=== PATIENT | male | born 1955 | race Caucasian/White ===

== ENCOUNTER 2017-11-26 10:46 | Inpatient (IN) | payer OTHER ==
--- NOTE | 2017-11-26 11:35 | PDOC ---
Attending Attestation - HPI HPI: 11/26/17 11:41 62M BIBA No recorded pmhx, reports significant EtOH use. (drinks a minimum 3 shots a day) Pt reports SOB, palpitations, irregular heart rate, and lightheadedness on Sunday. Reports tremors began yesterday Pt states he has not consumed EtOh since sunday Pt presents today with tremors and lightheadedness notes prior tremors in past, but not with this long of a duration. Pt used to attend [facility] in [place], but stopped after 01/2017. Plans on attending another clinic. No fever, no falls, no loc, no cp no sob at presentation. No other problems other than tremors Denies hx of delirium withdrawal Fhx: Diabetes <Archana Abad - Last Filed: 11/26/17 13:06> - Resident Resident Name: Jerald Antonio - ED Attending Attestation I have performed the following: I have examined & evaluated the patient, The case was reviewed & discussed with the resident, I agree w/resident's findings & plan, Exceptions are as noted - Physicial Exam PE: 11/28/17 11:44 GENERAL: The patient is in no acute distress, Awake and alert, tremulous. ENT: (+) tongue fasciculations NECK: Normal range of motion LUNGS: Breath sounds equal, clear to auscultation bilaterally. HEART: Tachycardiac, Regular ABDOMEN: Soft, nontender EXTREMITIES: Normal range of motion, no edema. NEUROLOGICAL: Cranial nerves II through XII grossly intact. Normal speech. No focal neurological deficits. - Medical Decision Making 11/26/17 12:58 Laboratory Tests 11/26/17 11/26/17 11:53 11:53 WBC 6.5 Hgb 11.6 L Hct 32.9 L Plt Count 155 Sodium 141 Potassium 3.2 L Chloride 104 Carbon Dioxide 27 BUN 7 Creatinine 0.6 L Random Glucose 102 Total Bilirubin 1.5 H AST 136 H ALT 65 EKG: SR, rate of 93 bpm, axis nml, no st elevations or depressions QTC - 537ms T waves upright Pt given Librium 50mg po, Ativan 2mg IV and then another dose of Ativan 2mg Upon evening rounds, pt tremulous, given Ativan 4mg IV Pt is less tremulous Will admit to Dr Almaraz Clinical Impression: Alcohol withdrawal, initial presentation <Kim Cadena - Last Filed: 11/28/17 11:45> Discharge Disposition <Archana Abad - Last Filed: 11/26/17 13:06> - Discharge Dispostion Decision to Admit order: Yes <Kim Cadena - Last Filed: 11/28/17 11:45> - Diagnosis Alcohol withdrawal Qualifiers: Complication of substance-induced condition: uncomplicated Qualified Code(s): F10.230 - Alcohol dependence with withdrawal, uncomplicated - Discharge Dispostion Condition at time of disposition: Guarded Attestations - Attestations Documentation prepared by Archana Abad, acting as medical service technician for Kim Cadena MD. <Archana Abad - Last Filed: 11/26/17 13:06>
[2017-11-26] MEDS ORDERED: SODIUM CHLORIDE 1,000 ML IV STA (11:36)
[2017-11-26] MEDS ORDERED: chlordiazePOXIDE HCL 25 MG CAPSULE PO ONE (11:38)
[2017-11-26 11:55] VITALS: BMI 23.0
[2017-11-26] MEDS ORDERED: chlordiazePOXIDE HCL 25 MG CAPSULE ONE (11:58)
[2017-11-26] MEDS ORDERED: LORazepam 2 MG/ML SDV VIAL ONE ×4 (11:59→18:52)
--- NOTE | 2017-11-26 12:07 | PDOC ---
History of Present Illness - General Chief Complaint: Alcohol intoxication Stated Complaint: WITHDRAWAL Time Seen by Provider: 11/26/17 10:54 - History of Present Illness Initial Comments: 11/26/17 12:57 62 yo M who states he has no pmh is here after experiencing an irregular heart rate, SOB, and lightheadedness since Sunday. Then on Sunday he started to experience a bilateral hand tremor. the patient states he is a heavy alcohol drinker and has at least 3 to 4 shots a day. His last alcoholic drink was Sunday. He denies any recent fevers, chest pain, falling down. or LOC. Denies N/V/D Past History - Past Medical History Allergies/Adverse Reactions: Allergies Allergy/AdvReac Type Severity Reaction Status Date / Time No Known Allergies Allergy Verified 11/26/17 11:20 Home Medications: Ambulatory Orders NK [No Known Home Medication] 11/26/17 Review of Systems - Review of Systems Comments:: 11/26/17 12:59 CONSTITUTIONAL: Absent: fever, chills, diaphoresis, generalized weakness, malaise, loss of appetite HEENT: Absent: rhinorrhea, nasal congestion, throat pain, throat swelling, difficulty swallowing, mouth swelling, ear pain, eye pain, visual Changes CARDIOVASCULAR: Positive: palpitations, irregular heart rate, lightheadedness Absent: chest pain, syncope,peripheral edema RESPIRATORY: Positive: SOB Absent: cough, dyspnea with exertion, orthopnea, wheezing, stridor, hemoptysis GASTROINTESTINAL: Absent: abdominal pain, abdominal distension, nausea, vomiting, diarrhea, constipation, melena, hematochezia GENITOURINARY: Absent: dysuria, frequency, urgency, hesitancy, hematuria, flank pain, genital pain MUSCULOSKELETAL: Absent: myalgia, arthralgia, joint swelling SKIN: Positive: Abrasions on both arms from a fall 3 weeks back Absent: rash, itching, pallor HEMATOLOGIC/IMMUNOLOGIC: Absent: easy bleeding, easy bruising, lymphadenopathy, frequent infections ENDOCRINE: Absent: unexplained weight gain, unexplained weight loss, heat intolerance, cold intolerance NEUROLOGIC: Absent: headache, focal weakness or paresthesias, dizziness, unsteady gait, seizure, mental status changes, bladder or bowel incontinence PSYCHIATRIC: Absent: anxiety, depression, suicidal or homicidal ideation, hallucinations. *Physical Exam - Physical Exam Comments: 11/26/17 13:01 GENERAL: Patient is uncomfortable because both hands are experiencing a tremor. Well developed, well nourished. Awake and alert. HEENT: Tongue is constantly fasciculating. Normocephalic, atraumatic. PERRLA, EOMI. No conjunctival pallor. Sclera are non- icteric. Moist mucous membranes. Oropharynx is clear. NECK: Supple. Full ROM. No JVD. Carotid pulses 2+ and symmetric, without bruits. No thyromegaly. No lymphadenopathy. CARDIOVASCULAR: Patient is tachycardic, regular rhythm. No murmurs, rubs, or gallops. Distal pulses are 2+ and symmetric. PULMONARY: No evidence of respiratory distress. Lungs clear to auscultation bilaterally. No wheezing, rales or rhonchi. ABDOMINAL: Soft. Non-tender. Non-distended. No rebound or guarding. No organomegaly. Normoactive bowel sounds. MUSCULOSKELETAL Normal range of motion at all joints. No bony deformities or tenderness. No CVA tenderness. EXTREMITIES: No cyanosis. No clubbing. No edema. No calf tenderness. SKIN: bilaterall abrasions on arm from 3 weeks ago. Warm and dry. Normal capillary refill. No rashes. No jaundice. NEUROLOGICAL: Alert, awake, appropriate. Cranial nerves 2-12 intact. No deficits to light touch Normal speech. PSYCHIATRIC: Cooperative. Good eye contact. Appropriate mood and affect. ED Treatment Course - LABORATORY CBC & Chemistry Diagram: 11/26/17 11:53 11/26/17 11:53 Medical Decision Making - Medical Decision Making 11/26/17 13:03 62 yo M here with tachycardia, HTN, bilateral arm tremor, tongue fasciculations , here with what is likely alcohol withdrawal. He endorses heavy drinking on a daily basis. last drink was Sunday. Plan: Librium, ativan, cbc, cmp, utox, alcohol level, ekg, re-assess. Arrange plan for alcohol detox. Plan is to admit patient for alcohol withdrawal. 11/26/17 13:34 *DC/Admit/Observation/Transfer Diagnosis at time of Disposition: Alcohol withdrawal Qualifiers: Complication of substance-induced condition: uncomplicated Qualified Code(s): F10.230 - Alcohol dependence with withdrawal, uncomplicated - Discharge Dispostion Condition at time of disposition: Guarded Decision to Admit order: Yes - Referrals - Patient Instructions - Post Discharge Activity
[2017-11-26 12:13] LABS: BASO % 1.2 % (0-2.0); EOS % 0.2 % (0-4.5); HEMATOCRIT 32.9 % (35.4-49); HEMOGLOBIN 11.6 GM/dL (11.7-16.9); LYMPH % 10.8 % (8-40); MCH 37.7 pg (25.7-33.7); MCHC 35.4 g/dl (32.0-35.9); MEAN CELL VOLUME 106.6 fl (80-96); MEAN PLT VOLUME 8.2 fl (7.5-11.1); MONO % 9.5 % (3.8-10.2); NEUT % 78.3 % (42.8-82.8); PLATELET COUNT 155 K/MM3 (134-434); RBC 3.08 M/mm3 (4.00-5.60); RDW 15.9 % (11.9-15.9); WHITE BLOOD COUNT 6.5 K/mm3 (4.0-10.0)
[2017-11-26 12:38] LABS: ALBUMIN 2.9 g/dl (3.4-5.0); AMYLASE 19 U/L (25-115); ANION GAP 10 (8-16); BILIRUBIN,TOTAL 1.5 mg/dL (0.2-1.0); BLOOD UREA NITROGEN 7 mg/dL (7-18); CALCIUM 8.1 mg/dL (8.5-10.1); CHLORIDE 104 mmol/L (98-107); CO2 27 mmol/L (21-32); CREATININE 0.6 mg/dL (0.7-1.3); GLUCOSE,RANDOM 102 mg/dL (74-106); LIPASE 111 U/L (73-393); SGPT/ALT 65 U/L (12-78); SODIUM 141 mmol/L (136-145); TOT PROT 6.2 g/dl (6.4-8.2)
[2017-11-26 12:39] LABS: ALK PHOS 230 U/L (45-117)
[2017-11-26 12:44] LABS: POTASSIUM 3.2 mmol/L (3.5-5.1); SGOT/AST 136 U/L (15-37)
[2017-11-26] MEDS ORDERED: FOLIC ACID INJECTION - 1 MG, THIAMINE HCL 100 MG, MULTIVIT INJECTION ADULT 10 ML in SOD... IVPB ONE (13:26)
--- NOTE | 2017-11-26 13:37 | EKG ---
Test Reason : Blood Pressure : / mmHG Vent. Rate : 093 BPM Atrial Rate : 093 BPM P-R Int : 132 ms QRS Dur : 090 ms QT Int : 432 ms P-R-T Axes : 058 061 045 degrees QTc Int : 537 ms SINUS RHYTHM WITH WITH PREMATURE VENTRICULAR OR ABERRANTLY CONDUCTED COMPLEXES PROLONGED QT ABNORMAL ECG NO PREVIOUS ECGS AVAILABLE Confirmed by MARCY LANCE MD ([id number]) on 11/26/2017 1:37:20 PM Referred By: Confirmed By:MARCY LANCE MD
[2017-11-26 14:21] LABS: ANISOCYTOSIS 1+; MACROCYTOSIS 1+; PLATELET ESTIMATE NORMAL
--- NOTE | 2017-11-26 20:20 | HP ---
Admitting History and Physical - Primary Care Physician PCP: Jim Almaraz - Admission Chief Complaint: tremors, sob, palpitations History of Present Illness: 62 yo M who states he has no pmh is here after experiencing an irregular heart rate, SOB, and lightheadedness since Sunday. Then on Sunday he started to experience a bilateral hand tremor. the patient states he is a heavy alcohol drinker and has at least 3 to 4 shots a day. His last alcoholic drink was Sunday. He denies any recent fevers, chest pain. - Smoking History Smoking history: Unknown if ever smoked Have you smoked in the past 12 months: No - Alcohol/Substance Use Hx Alcohol Use: Yes ("3 SHOTS OF VODKA") Home Medications - Allergies Allergies/Adverse Reactions: Allergies Allergy/AdvReac Type Severity Reaction Status Date / Time No Known Allergies Allergy Verified 11/26/17 11:20 - Home Medications Home Medications: Ambulatory Orders NK [No Known Home Medication] 11/26/17 Physical Examination Vital Signs: Vital Signs Temperature 98.2 F 11/26/17 11:42 Pulse Rate 99 H 11/26/17 11:42 Respiratory Rate 16 11/26/17 11:42 Blood Pressure 161/108 11/26/17 11:42 O2 Sat by Pulse Oximetry (%) 100 11/26/17 11:42 Constitutional: Yes: Anxious HENT: Yes: Atraumatic Neck: Yes: Supple Cardiovascular: Yes: Tachycardia Respiratory: Yes: CTA Bilaterally Gastrointestinal: Yes: Normal Bowel Sounds Extremities: Yes: WNL Neurological: Yes: Alert, Oriented Labs: CBC, BMP 11/26/17 11:53 11/26/17 11:53 Imaging - Results X-ray: Report Reviewed Problem List - Problems (1) Alcohol withdrawal Assessment/Plan: will put him on librium get detox consult prn ativan mvi Code(s): F10.239 - ALCOHOL DEPENDENCE WITH WITHDRAWAL, UNSPECIFIED Qualifiers: Complication of substance-induced condition: uncomplicated Qualified Code(s ): F10.230 - Alcohol dependence with withdrawal, uncomplicated Assessment/Plan Laboratory Tests 11/26/17 11/26/17 11:53 11:53 WBC 6.5 RBC 3.08 L Hgb 11.6 L Hct 32.9 L MCV 106.6 H MCH 37.7 H MCHC 35.4 RDW 15.9 Plt Count 155 MPV 8.2 Absolute Neuts (auto) 5.1 Neutrophils % 78.3 Lymphocytes % 10.8 Monocytes % 9.5 Eosinophils % 0.2 Basophils % 1.2 Nucleated RBC % 0 Hypochromia 0 Platelet Estimate Normal Polychromasia 0 Poikilocytosis 0 Anisocytosis 1+ Microcytosis 0 Macrocytosis 1+ Sodium 141 Potassium 3.2 L Chloride 104 Carbon Dioxide 27 Anion Gap 10 BUN 7 Creatinine 0.6 L Creat Clearance w eGFR > 60 Random Glucose 102 Calcium 8.1 L Total Bilirubin 1.5 H AST 136 H ALT 65 Alkaline Phosphatase 230 H Total Protein 6.2 L Albumin 2.9 L Total Amylase 19 L Lipase 111 Active Medications Generic Name Dose Route Start Last Admin Trade Name Freq PRN Reason Stop Dose Admin Folic Acid 1 mg/ Thiamine HCl 1,000 mls @ 125 mls/hr 11/26/17 13:26 11/26/17 14:38 100 mg/ Multivitamins/Minerals IVPB 11/26/17 21:25 125 mls/hr 10 ml/ Sodium Chloride ONCE ONE Administration Active Medications Generic Name Dose Route Start Last Admin Trade Name Freq PRN Reason Stop Dose Admin Chlordiazepoxide HCl 50 mg 11/27/17 05:30 11/27/17 13:10 Librium - PO 11/27/17 23:01 Not Given [id number] AYDE Chlordiazepoxide HCl 25 mg 11/28/17 05:00 Librium - PO 11/28/17 23:01 [id number] AYDE Chlordiazepoxide HCl 15 mg 11/29/17 05:00 Librium - PO 11/29/17 23:01 [id number] AYDE Chlordiazepoxide HCl 50 mg 11/27/17 05:08 Librium - PO 11/30/17 05:07 Q4H PRN WITHDRAWAL(CONT SUBST) Chlordiazepoxide HCl 10 mg 11/30/17 05:00 Librium - PO 11/30/17 23:01 [id number] AYDE Potassium Chloride 40 meq 11/26/17 20:45 11/27/17 11:05 K-Dur - PO 40 meq DAILY AYDE Administration Thiamine HCl 100 mg 11/27/17 10:00 11/27/17 11:05 Vitamin B1 - PO 100 mg DAILY AYDE Administration
[2017-11-26] MEDS ORDERED: POTASSIUM CHLORIDE TABS 20 MEQ TABLET.ER (FP) PO ONE (21:22)
[2017-11-26] MEDS: POTASSIUM CHLORIDE TABS 20 MEQ TABLET.ER (FP) PO SCH (21:51)
[2017-11-27] MEDS ORDERED: LORazepam 2 MG/ML SDV VIAL ONE (01:13)
[2017-11-27 06:39] LABS: EOS % 0.9 % (0-4.5); HEMATOCRIT 30.5 % (35.4-49); HEMOGLOBIN 10.8 GM/dL (11.7-16.9); LYMPH % 12.6 % (8-40); MCH 38.4 pg (25.7-33.7); MCHC 35.5 g/dl (32.0-35.9); MEAN CELL VOLUME 108.1 fl (80-96); MEAN PLT VOLUME 8.2 fl (7.5-11.1); MONO % 8.2 % (3.8-10.2); NEUT % 77.3 % (42.8-82.8); PLATELET COUNT 128 K/MM3 (134-434); RBC 2.82 M/mm3 (4.00-5.60); RDW 15.6 % (11.9-15.9); WHITE BLOOD COUNT 7.3 K/mm3 (4.0-10.0)
[2017-11-27] MEDS: chlordiazePOXIDE HCL 25 MG CAPSULE PO SCH ×4 (06:40→22:23)
[2017-11-27 07:03] LABS: ALBUMIN 2.6 g/dl (3.4-5.0); ANION GAP 11 (8-16); BLOOD UREA NITROGEN 7 mg/dL (7-18); CALCIUM 7.8 mg/dL (8.5-10.1); CHLORIDE 109 mmol/L (98-107); CO2 24 mmol/L (21-32); GLUCOSE,RANDOM 66 mg/dL (74-106); SODIUM 144 mmol/L (136-145)
[2017-11-27 07:06] LABS: ALK PHOS 185 U/L (45-117); BILIRUBIN,TOTAL 1.2 mg/dL (0.2-1.0); CREATININE 0.4 mg/dL (0.7-1.3); SGOT/AST 98 U/L (15-37); SGPT/ALT 52 U/L (12-78); TOT PROT 5.2 g/dl (6.4-8.2)
[2017-11-27 07:27] LABS: POTASSIUM 2.7 mmol/L (3.5-5.1)
[2017-11-27 09:02] LABS: URINE APPEARANCE CLEAR; URINE BILIRUBIN NEGATIVE (<2.0 mg/dL); URINE COLOR YELLOW; URINE GLUCOSE (UA) NEGATIVE (NEGATIVE); URINE KETONE TRACE (NEGATIVE); URINE LEUK ESTERASE NEGATIVE (NEGATIVE); URINE NITRITE NEGATIVE (NEGATIVE); URINE PROTEIN NEGATIVE (NEGATIVE); URINE UROBILINOGEN 4.0 E.U/dl mg/dL (0.2-1.0)
[2017-11-27 09:16] LABS: COCAINE, UR NEGATIVE ng/ml (CUTOFF=300); METHADONE, UR NEGATIVE ng/ml (CUTOFF=300); OPIATES, URI NEGATIVE ng/ml (CUTOFF=300); URINE AMPHETAMINES NEGATIVE ng/ml (CUTOFF=500); URINE BARBITURATES NEGATIVE ng/ml (CUTOFF=200)
[2017-11-27 09:22] LABS: PHENCYCLIDINE,URINE NEGATIVE ng/ml (CUTOFF=25)
[2017-11-27 09:38] LABS: URINE BENZODIAZEPINES POSITIVE ng/ml (CUTOFF=200)
[2017-11-27] MEDS: THIAMINE HCL 100 MG TABLET (FP) PO SCH (11:05)
[2017-11-27] MEDS: KCL 10 MEQ IVPB 10 MEQ/100 ML INFUS.BAG IVPB SCH ×2 (11:05→13:09)
[2017-11-27] MEDS: POTASSIUM CHLORIDE TABS 20 MEQ TABLET.ER (FP) PO SCH (11:05)
--- NOTE | 2017-11-27 15:32 | PN ---
Progress Note, Physician - Current Medication List Current Medications: Active Medications Chlordiazepoxide HCl (Librium -) 25 mg PO [id number] AYDE Stop: 11/28/17 23:01 Last Admin: 11/28/17 10:00 Dose: 25 mg Chlordiazepoxide HCl (Librium -) 15 mg PO [id number] AYDE Stop: 11/29/17 23:01 Chlordiazepoxide HCl (Librium -) 50 mg PO Q4H PRN PRN Reason: WITHDRAWAL(CONT SUBST) Stop: 11/30/17 05:07 Chlordiazepoxide HCl (Librium -) 10 mg PO [id number] AYDE Stop: 11/30/17 23:01 Nicotine (Nicoderm Patch -) 21 mg TD DAILY AYDE Last Admin: 11/28/17 10:24 Dose: 21 mg Potassium Chloride (K-Dur -) 40 meq PO DAILY AYDE Last Admin: 11/28/17 09:21 Dose: 40 meq Thiamine HCl (Vitamin B1 -) 100 mg PO DAILY AYDE Last Admin: 11/28/17 09:21 Dose: 100 mg - Objective Vital Signs: Vital Signs Temperature 98.1 F 11/28/17 05:28 Pulse Rate 84 11/28/17 05:28 Respiratory Rate 18 11/28/17 05:28 Blood Pressure 126/79 11/28/17 05:28 O2 Sat by Pulse Oximetry (%) 96 11/27/17 21:00 Labs: CBC, BMP 11/27/17 06:00 11/28/17 10:15 <Pantera Harmon - Last Filed: 11/28/17 11:22> History of Present Illness: has tremors - Current Medication List Current Medications: Active Medications Chlordiazepoxide HCl (Librium -) 50 mg PO [id number] AYDE Stop: 11/27/17 23:01 Last Admin: 11/27/17 13:10 Dose: Not Given Chlordiazepoxide HCl (Librium -) 25 mg PO [id number] AYDE Stop: 11/28/17 23:01 Chlordiazepoxide HCl (Librium -) 15 mg PO [id number] AYDE Stop: 11/29/17 23:01 Chlordiazepoxide HCl (Librium -) 50 mg PO Q4H PRN PRN Reason: WITHDRAWAL(CONT SUBST) Stop: 11/30/17 05:07 Chlordiazepoxide HCl (Librium -) 10 mg PO [id number] [facility] Stop: 11/30/17 23:01 Potassium Chloride (K-Dur -) 40 meq PO DAILY [facility] Last Admin: 11/27/17 11:05 Dose: 40 meq Thiamine HCl (Vitamin B1 -) 100 mg PO DAILY [facility] Last Admin: 11/27/17 11:05 Dose: 100 mg - Objective Vital Signs: Vital Signs Temperature 98.4 F 11/27/17 10:00 Pulse Rate 89 11/27/17 10:00 Respiratory Rate 20 11/27/17 10:00 Blood Pressure 150/98 11/27/17 10:00 O2 Sat by Pulse Oximetry (%) 95 11/27/17 10:00 Constitutional: Yes: No Distress HENT: Yes: Atraumatic Neck: Yes: Supple Cardiovascular: Yes: Regular Rate and Rhythm Respiratory: Yes: CTA Bilaterally Gastrointestinal: Yes: Normal Bowel Sounds Extremities: Yes: WNL Edema: No Peripheral Pulses WNL: Yes Neurological: Yes: Alert, Oriented Labs: CBC, BMP 11/27/17 06:00 11/27/17 06:00 <Jim Almaraz - Last Filed: 11/28/17 17:21> Problem List - Problems (1) Alcohol withdrawal Assessment/Plan: will put him on librium get detox consult prn ativan mvi Code(s): F10.239 - ALCOHOL DEPENDENCE WITH WITHDRAWAL, UNSPECIFIED Qualifiers: Complication of substance-induced condition: uncomplicated Qualified Code(s ): F10.230 - Alcohol dependence with withdrawal, uncomplicated <Jim Almaraz - Last Filed: 11/28/17 17:21>
--- NOTE | 2017-11-27 16:06 | CONSULT ---
Consult Detox [facility] Reason for Current Admission/Consult: alcohol use - History History of Present Illness: 62 yo old male lives with his mother. Says he drinks 3-4 shots a day, and his mother said that he drinks about 6 beers a day. 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 Pt denies h/o seizures, DT's. Says he has chronic gross tremors for several years and never had a diagnosis. Pt came to hospital for c/o heart palpitations - History Source History Provided By: Patient, Family Member Limitations to Obtaining History: Poor Historian - Alcohol/Substance Use Hx Alcohol Use: Yes ("3 SHOTS OF VODKA", drinks 6 beers/day per mom) Hx Substance Use: No Hx Substance Use Treatment: No CIWA Score - CIWA Score Nausea/Vomitin-No Nausea/No Vomiting Muscle Tremors: 7-Severe,w/o Arm Extended Anxiety: 2 Agitation: 1-Slight > Activity Paroxysmal Sweats: 1-Minimal Palms Moist Orientation: 0-Oriented Tacttile Disturbances: 0-None Auditory Disturbances: 7Continuous Hallucination Visual Disturbances: 0-None Headache: 0-None Present CIWA-Ar Total Score: 18 Assessment Plan - Diagnosis (1) Alcohol withdrawal Status: Acute Qualifiers: Complication of substance-induced condition: uncomplicated Qualified Code(s ): F10.230 - Alcohol dependence with withdrawal, uncomplicated - Plan Plan: pt was started on alcohol rehab protocol, Vit B12 and thiamine. Prn librium. Will give dose of librium now- pt with anxiety Offered pt rehab services at [facility]- pt states he will go home- lives with mother. - Medication Detox Regimen/Protocol: Librium
[2017-11-28] MEDS: chlordiazePOXIDE HCL 25 MG CAPSULE PO SCH ×4 (05:58→22:37)
[2017-11-28] MEDS: THIAMINE HCL 100 MG TABLET (FP) PO SCH (09:21)
[2017-11-28] MEDS: POTASSIUM CHLORIDE TABS 20 MEQ TABLET.ER (FP) PO SCH (09:21)
[2017-11-28] MEDS: NICOTINE 21 MG/24 HOURS TOPICAL PATCH TD SCH (10:24)
[2017-11-28 10:59] LABS: ALBUMIN 2.7 g/dl (3.4-5.0); ANION GAP 15 (8-16); BLOOD UREA NITROGEN 11 mg/dL (7-18); CALCIUM 8.2 mg/dL (8.5-10.1); CHLORIDE 104 mmol/L (98-107); CO2 21 mmol/L (21-32); CREATININE 0.7 mg/dL (0.7-1.3); GLUCOSE,RANDOM 167 mg/dL (74-106); SGOT/AST 82 U/L (15-37); SGPT/ALT 52 U/L (12-78); SODIUM 140 mmol/L (136-145)
[2017-11-28 11:01] LABS: ALK PHOS 186 U/L (45-117); BILIRUBIN,TOTAL 1.7 mg/dL (0.2-1.0); TOT PROT 5.7 g/dl (6.4-8.2)
--- NOTE | 2017-11-28 11:13 | CON.CARD ---
Consult Consult Specialty:: Cardiology Referred by:: Jim Almaraz MD Reason for Consultation:: Rapid afib - History of Present Illness Chief Complaint: Palpitations, dyspnea History of Present Illness: 62 yo M h/o significant EtOH use (drinks a minimum 3-4 shots a day and 6 beers a day for about 15 years) presented for irregular palpitations, SOB, and lightheadedness since Sunday. Then on Sunday he started to experience bilateral hand tremors. His last alcoholic drink was Sunday, tremulousness improved with librium, he denies any chest pain, near or true syncope, orthopnea , PND or LE edema. - History Source History Provided By: Patient Limitations to Obtaining History: No Limitations - Alcohol/Substance Use Hx Alcohol Use: Yes ("3 SHOTS OF VODKA", drinks 6 beers/day per mom) - Smoking History Smoking history: Unknown if ever smoked Have you smoked in the past 12 months: No Aproximately how many cigarettes per day: 10 Home Medications - Allergies Allergies/Adverse Reactions: Allergies Allergy/AdvReac Type Severity Reaction Status Date / Time No Known Allergies Allergy Verified 11/26/17 11:20 - Home Medications Home Medications: Ambulatory Orders NK [No Known Home Medication] 11/26/17 Review of Systems - Review of Systems Cardiovascular: reports: Palpitations, Shortness of Breath Neurological: reports: Dizziness, Tremors Vital Signs: Vital Signs Temperature 98.1 F 11/28/17 05:28 Pulse Rate 84 11/28/17 05:28 Respiratory Rate 18 11/28/17 05:28 Blood Pressure 126/79 11/28/17 05:28 O2 Sat by Pulse Oximetry (%) 96 11/27/17 21:00 Constitutional: Yes: No Distress, Calm, Cachectic, Thin Neck: Yes: Supple Respiratory: Yes: Regular, Diminished Gastrointestinal: Yes: Normal Bowel Sounds, Soft Cardiovascular: Yes: Regular Rate and Rhythm JVD: No Carotid Bruit: No Heart Sounds: Yes: S1, S2 Edema: No - Other Data Labs, Other Data: CBC, BMP 11/27/17 06:00 11/28/17 10:15 Tele: PAF->SR NSR @ 93 PVC, prolonged QTc Imaging - Results Chest X-ray: Report Reviewed (NAD) Cat Scan: Report Reviewed (HCT: No acute changes) Problem List - Problems (1) Paroxysmal atrial fibrillation with rapid ventricular response Code(s): I48.0 - PAROXYSMAL ATRIAL FIBRILLATION (2) Hypokalemia Code(s): E87.6 - HYPOKALEMIA (3) Anemia, macrocytic, nutritional Code(s): D52.0 - DIETARY FOLATE DEFICIENCY ANEMIA (4) Alcohol withdrawal Code(s): F10.239 - ALCOHOL DEPENDENCE WITH WITHDRAWAL, UNSPECIFIED Qualifiers: Complication of substance-induced condition: uncomplicated Qualified Code(s ): F10.230 - Alcohol dependence with withdrawal, uncomplicated Assessment/Plan 1. Palpitations, dyspnea, near syncope referable to rapid paroxysmal afib->SR [id number] 2. ETOH dependence with uncomplicated withdrawal 3. Macrocytic anemia 4. Hypokalemia P:1. Check TSH, echo to assess ventricular and atrial size and fxn 2. Start Lopressor 25 bid, not ideal anticoagulation candidate due to low risk score and ETOH dependence 3. Librium taper, replete K, vitamin B12 and thiamine repletion 4. Thank you for consultative opportunity
[2017-11-28 11:43] LABS: POTASSIUM 2.8 mmol/L (3.5-5.1)
[2017-11-28] MEDS ORDERED: POTASSIUM CHLORIDE TABS 20 MEQ TABLET.ER (FP) PO ONE ×2 (11:44→14:00)
[2017-11-28] MEDS: METOPROLOL TARTRATE 25 MG TABLET (FP) PO SCH ×2 (12:05→22:37)
--- NOTE | 2017-11-28 16:28 | ECHO ---
Name: GILL CLEMENTS Exam:Adult Echocardiogram Study Date: 11/28/2017 01:28 PM Age: 62 yrs Reason For Study: PAROXYSMAL ATRIAL FIBRILLATION SR Height: 71 in Weight: 165 lb BSA: 1.9 m2 MMode/2D Measurements & Calculations IVSd: 0.87 cm Ao root diam: 2.8 cm LVIDd: 4.9 cm LVIDs: 3.5 cm LVPWd: 1.0 cm EDV(Teich): 114.2 ml ESV(Teich): 51.8 ml Doppler Measurements & Calculations MV E max yann: 40.0 cm/sec MV A max yann: 73.1 cm/sec MV E/A: 0.55 Left Ventricle The left ventricle is normal in size. The left ventricular ejection fraction is normal. The transmitr al spectral Doppler flow pattern is suggestive of impaired LV relaxation. Right Ventricle The right ventricular systolic function is normal. Atria The left atrium is not well visualized, but appears grossly normal in size. Tricuspid Valve There is trace tricuspid regurgitation. Aortic Valve The aortic valve is trileaflet. The aortic valve is normal in structure and function. Great Vessels The aortic root is normal size. Pericardium/Pleura There is no pericardial effusion. Interpretation Summary The transmitral spectral Doppler flow pattern is suggestive of impaired LV relaxation. The left ventricle is normal in size. The left ventricular ejection fraction is normal. The left atrium is not well visualized, but appears grossly normal in size. There is trace tricuspid regurgitation. The aortic valve is trileaflet. The aortic root is normal size. There is no pericardial effusion. Jaswinder Umana MD 11/28/2017 04:27 PM
--- NOTE | 2017-11-28 17:22 | PN ---
Progress Note, Physician History of Present Illness: has tremors - Current Medication List Current Medications: Active Medications Chlordiazepoxide HCl (Librium -) 25 mg PO [id number] [facility] Stop: 11/28/17 23:01 Last Admin: 11/28/17 16:55 Dose: 25 mg Chlordiazepoxide HCl (Librium -) 15 mg PO [id number] AYDE Stop: 11/29/17 23:01 Chlordiazepoxide HCl (Librium -) 50 mg PO Q4H PRN PRN Reason: WITHDRAWAL(CONT SUBST) Stop: 11/30/17 05:07 Chlordiazepoxide HCl (Librium -) 10 mg PO [id number] [facility] Stop: 11/30/17 23:01 Potassium Chloride (Potassium Chloride 10 Meq Premix Ivpb -) 10 meq in 100 mls @ 100 mls/hr IVPB Q60M [facility] Stop: 11/28/17 19:29 Metoprolol Tartrate (Lopressor -) 25 mg PO BID [facility] Last Admin: 11/28/17 12:05 Dose: 25 mg Nicotine (Nicoderm Patch -) 21 mg TD DAILY [facility] Last Admin: 11/28/17 10:24 Dose: 21 mg Potassium Chloride (K-Dur -) 40 meq PO DAILY [facility] Last Admin: 11/28/17 09:21 Dose: 40 meq Thiamine HCl (Vitamin B1 -) 100 mg PO DAILY [facility] Last Admin: 11/28/17 09:21 Dose: 100 mg - Objective Vital Signs: Vital Signs Temperature 98.2 F 11/28/17 14:20 Pulse Rate 88 11/28/17 14:20 Respiratory Rate 18 11/28/17 14:20 Blood Pressure 118/74 11/28/17 14:20 O2 Sat by Pulse Oximetry (%) 92 L 11/28/17 09:00 HENT: Yes: Atraumatic Neck: Yes: Supple Cardiovascular: Yes: Regular Rate and Rhythm Respiratory: Yes: CTA Bilaterally Gastrointestinal: Yes: Normal Bowel Sounds Extremities: Yes: WNL Neurological: Yes: Alert, Oriented Labs: CBC, BMP 11/27/17 06:00 11/28/17 10:15 Problem List - Problems (1) Alcohol withdrawal Assessment/Plan: on libriumdetox consult prn ativan mvi Code(s): F10.239 - ALCOHOL DEPENDENCE WITH WITHDRAWAL, UNSPECIFIED Qualifiers: Complication of substance-induced condition: uncomplicated Qualified Code(s ): F10.230 - Alcohol dependence with withdrawal, uncomplicated
[2017-11-28] MEDS ORDERED: POTASSIUM CHLORIDE 10 MEQ in SODIUM CHLORIDE 100 ML IVPB SCH (17:30)
[2017-11-28] MEDS: KCL 10 MEQ IVPB 10 MEQ/100 ML INFUS.BAG IVPB SCH (17:51)
[2017-11-29] MEDS: chlordiazePOXIDE HCL 25 MG CAPSULE PO PRN ×2 (01:05→21:29)
[2017-11-29] MEDS: chlordiazePOXIDE 5 MG CAPSULE PO SCH ×4 (05:57→23:49)
[2017-11-29] MEDS: NICOTINE 21 MG/24 HOURS TOPICAL PATCH TD SCH (09:30)
[2017-11-29] MEDS: POTASSIUM CHLORIDE TABS 20 MEQ TABLET.ER (FP) PO SCH (09:30)
[2017-11-29] MEDS: METOPROLOL TARTRATE 25 MG TABLET (FP) PO SCH (09:31)
[2017-11-29] MEDS: THIAMINE HCL 100 MG TABLET (FP) PO SCH (09:31)
--- NOTE | 2017-11-29 09:35 | PN ---
Progress Note, Physician History of Present Illness: Palpitations, SOB, and lightheadedness have resolved, no further PAF. Still with tremulousness. - Current Medication List Current Medications: Active Medications Chlordiazepoxide HCl (Librium -) 15 mg PO [id number] [facility] Stop: 11/29/17 23:01 Last Admin: 11/29/17 05:57 Dose: 15 mg Chlordiazepoxide HCl (Librium -) 50 mg PO Q4H PRN PRN Reason: WITHDRAWAL(CONT SUBST) Stop: 11/30/17 05:07 Last Admin: 11/29/17 01:05 Dose: 50 mg Chlordiazepoxide HCl (Librium -) 10 mg PO [id number] [facility] Stop: 11/30/17 23:01 Metoprolol Tartrate (Lopressor -) 25 mg PO BID [facility] Last Admin: 11/29/17 09:31 Dose: 25 mg Nicotine (Nicoderm Patch -) 21 mg TD DAILY [facility] Last Admin: 11/29/17 09:30 Dose: 21 mg Potassium Chloride (K-Dur -) 40 meq PO DAILY [facility] Last Admin: 11/29/17 09:30 Dose: 40 meq Thiamine HCl (Vitamin B1 -) 100 mg PO DAILY [facility] Last Admin: 11/29/17 09:31 Dose: 100 mg - Objective Vital Signs: Vital Signs Temperature 98.3 F 11/29/17 08:54 Pulse Rate 80 11/29/17 08:54 Respiratory Rate 18 11/29/17 08:54 Blood Pressure 126/87 11/29/17 08:54 O2 Sat by Pulse Oximetry (%) 95 11/29/17 08:54 Constitutional: Yes: No Distress, Calm, Cachectic, Thin Neck: Yes: Supple Cardiovascular: Yes: Regular Rate and Rhythm Respiratory: Yes: Regular, Diminished Gastrointestinal: Yes: Normal Bowel Sounds, Soft Edema: No Neurological: Yes: Tremors Labs: CBC, BMP 11/27/17 06:00 11/28/17 10:15 - ....Imaging EKG: Report Reviewed (Tele: SR with PAC, no further PAF) Problem List - Problems (1) Paroxysmal atrial fibrillation with rapid ventricular response Code(s): I48.0 - PAROXYSMAL ATRIAL FIBRILLATION (2) Hypokalemia Code(s): E87.6 - HYPOKALEMIA (3) Anemia, macrocytic, nutritional Code(s): D52.0 - DIETARY FOLATE DEFICIENCY ANEMIA (4) Alcohol withdrawal Code(s): F10.239 - ALCOHOL DEPENDENCE WITH WITHDRAWAL, UNSPECIFIED Qualifiers: Complication of substance-induced condition: uncomplicated Qualified Code(s ): F10.230 - Alcohol dependence with withdrawal, uncomplicated Assessment/Plan 11/28/2017 Echo: Normal LV and RV size and fxn, abnl LV compliance w/o sig valve abnl, normal LA size 1. Palpitations, dyspnea, near syncope referable to rapid paroxysmal afib->SR [id number] 2. ETOH dependence with uncomplicated withdrawal 3. Macrocytic anemia 4. Hypokalemia P: 1. Change Toprol XL 25 qd, not ideal anticoagulation candidate due to low risk score and ETOH dependence 2. Librium taper, replete K, vitamin B12 and thiamine repletion
[2017-11-29] MEDS: metoPROLOL SUCCINATE 25 MG TAB.SR.24H (FP) PO SCH (11:15)
--- NOTE | 2017-11-29 17:21 | PN ---
Progress Note, Physician History of Present Illness: doing well - Current Medication List Current Medications: Active Medications Chlordiazepoxide HCl (Librium -) 15 mg PO [id number] [facility] Stop: 11/29/17 23:01 Last Admin: 11/29/17 16:54 Dose: 15 mg Chlordiazepoxide HCl (Librium -) 50 mg PO Q4H PRN PRN Reason: WITHDRAWAL(CONT SUBST) Stop: 11/30/17 05:07 Last Admin: 11/29/17 01:05 Dose: 50 mg Chlordiazepoxide HCl (Librium -) 10 mg PO [id number] [facility] Stop: 11/30/17 23:01 Metoprolol Succinate (Toprol Xl -) 25 mg PO DAILY [facility] Last Admin: 11/29/17 11:15 Dose: 25 mg Nicotine (Nicoderm Patch -) 21 mg TD DAILY [facility] Last Admin: 11/29/17 09:30 Dose: 21 mg Potassium Chloride (K-Dur -) 40 meq PO DAILY [facility] Last Admin: 11/29/17 09:30 Dose: 40 meq Thiamine HCl (Vitamin B1 -) 100 mg PO DAILY [facility] Last Admin: 11/29/17 09:31 Dose: 100 mg - Objective Vital Signs: Vital Signs Temperature 97.5 F L 11/29/17 14:30 Pulse Rate 87 11/29/17 14:30 Respiratory Rate 18 11/29/17 14:30 Blood Pressure 113/64 11/29/17 14:30 O2 Sat by Pulse Oximetry (%) 95 11/29/17 08:54 Constitutional: Yes: No Distress HENT: Yes: Atraumatic Neck: Yes: Supple Cardiovascular: Yes: Regular Rate and Rhythm Respiratory: Yes: CTA Bilaterally Gastrointestinal: Yes: Normal Bowel Sounds Extremities: Yes: WNL Edema: No Neurological: Yes: Alert, Oriented Labs: CBC, BMP 11/27/17 06:00 11/28/17 10:15 Problem List - Problems (1) Alcohol withdrawal Assessment/Plan: on librium protocol rehab placement Code(s): F10.239 - ALCOHOL DEPENDENCE WITH WITHDRAWAL, UNSPECIFIED Qualifiers: Complication of substance-induced condition: uncomplicated Qualified Code(s ): F10.230 - Alcohol dependence with withdrawal, uncomplicated
[2017-11-29 20:23] LABS: BASO % 0.7 % (0-2.0); EOS % 0.9 % (0-4.5); HEMATOCRIT 32.9 % (35.4-49); HEMOGLOBIN 11.4 GM/dL (11.7-16.9); LYMPH % 8.3 % (8-40); MCH 38.4 pg (25.7-33.7); MCHC 34.6 g/dl (32.0-35.9); MEAN PLT VOLUME 7.9 fl (7.5-11.1); MONO % 8.4 % (3.8-10.2); NEUT % 81.7 % (42.8-82.8); PLATELET COUNT 202 K/MM3 (134-434); RBC 2.96 M/mm3 (4.00-5.60); RDW 16.4 % (11.9-15.9); WHITE BLOOD COUNT 7.8 K/mm3 (4.0-10.0)
[2017-11-29 20:57] LABS: ALBUMIN 2.7 g/dl (3.4-5.0); ALK PHOS 184 U/L (45-117); ANION GAP 9 (8-16); BILIRUBIN,TOTAL 0.7 mg/dL (0.2-1.0); BLOOD UREA NITROGEN 17 mg/dL (7-18); CALCIUM 8.5 mg/dL (8.5-10.1); CHLORIDE 109 mmol/L (98-107); CO2 26 mmol/L (21-32); CREATININE 0.9 mg/dL (0.7-1.3); GLUCOSE,RANDOM 111 mg/dL (74-106); POTASSIUM 4.1 mmol/L (3.5-5.1); SGOT/AST 100 U/L (15-37); SGPT/ALT 55 U/L (12-78); SODIUM 144 mmol/L (136-145); TOT PROT 5.5 g/dl (6.4-8.2)
[2017-11-29 21:33] LABS: MACROCYTOSIS 3+
[2017-11-29 21:34] LABS: PLATELET ESTIMATE ADEQUATE
[2017-11-30] MEDS: chlordiazePOXIDE HCL 25 MG CAPSULE PO PRN (01:33)
[2017-11-30] MEDS: chlordiazePOXIDE 5 MG CAPSULE PO SCH ×4 (06:52→23:06)
[2017-11-30] MEDS: THIAMINE HCL 100 MG TABLET (FP) PO SCH (10:12)
[2017-11-30] MEDS: NICOTINE 21 MG/24 HOURS TOPICAL PATCH TD SCH (10:12)
[2017-11-30] MEDS: POTASSIUM CHLORIDE TABS 20 MEQ TABLET.ER (FP) PO SCH (10:12)
[2017-11-30] MEDS: metoPROLOL SUCCINATE 25 MG TAB.SR.24H (FP) PO SCH (10:12)
--- NOTE | 2017-11-30 10:27 | PN ---
Progress Note, Physician History of Present Illness: Palpitations, SOB, and lightheadedness have resolved, no further PAF. Improved tremulousness. - Current Medication List Current Medications: Active Medications Chlordiazepoxide HCl (Librium -) 10 mg PO [id number] [facility] Stop: 11/30/17 23:01 Last Admin: 11/30/17 06:52 Dose: Not Given Metoprolol Succinate (Toprol Xl -) 25 mg PO DAILY [facility] Last Admin: 11/30/17 10:12 Dose: 25 mg Nicotine (Nicoderm Patch -) 21 mg TD DAILY [facility] Last Admin: 11/30/17 10:12 Dose: 21 mg Potassium Chloride (K-Dur -) 40 meq PO DAILY [facility] Last Admin: 11/30/17 10:12 Dose: 40 meq Thiamine HCl (Vitamin B1 -) 100 mg PO DAILY [facility] Last Admin: 11/30/17 10:12 Dose: 100 mg - Objective Vital Signs: Vital Signs Temperature 97.5 F L 11/30/17 06:50 Pulse Rate 78 11/30/17 06:50 Respiratory Rate 16 11/30/17 08:22 Blood Pressure 104/69 11/30/17 06:50 O2 Sat by Pulse Oximetry (%) 98 11/30/17 08:22 Constitutional: Yes: No Distress, Calm, Thin Neck: Yes: Supple Cardiovascular: Yes: Regular Rate and Rhythm Respiratory: Yes: Regular, CTA Bilaterally Gastrointestinal: Yes: Normal Bowel Sounds, Soft Edema: No Neurological: Yes: Tremors Labs: CBC, BMP 11/29/17 19:00 11/29/17 19:00 - ....Imaging EKG: Report Reviewed (Tele: SR with PAC w/o further PAF) Problem List - Problems (1) Paroxysmal atrial fibrillation with rapid ventricular response Code(s): I48.0 - PAROXYSMAL ATRIAL FIBRILLATION (2) Hypokalemia Code(s): E87.6 - HYPOKALEMIA (3) Anemia, macrocytic, nutritional Code(s): D52.0 - DIETARY FOLATE DEFICIENCY ANEMIA (4) Alcohol withdrawal Code(s): F10.239 - ALCOHOL DEPENDENCE WITH WITHDRAWAL, UNSPECIFIED Qualifiers: Complication of substance-induced condition: uncomplicated Qualified Code(s ): F10.230 - Alcohol dependence with withdrawal, uncomplicated Assessment/Plan 11/28/2017 Echo: Normal LV and RV size and fxn, abnl LV compliance w/o sig valve abnl, normal LA size 1. Palpitations, dyspnea, near syncope referable to rapid paroxysmal afib->SR [id number] 2. ETOH dependence with uncomplicated withdrawal 3. Macrocytic anemia 4. Hypokalemia P: 1. Continue Toprol XL 25 qd, not ideal anticoagulation candidate due to low risk score and ETOH dependence 2. Librium taper, replete K, vitamin B12 and thiamine repletion
--- NOTE | 2017-11-30 11:21 | DS ---
Physical Examination Vital Signs: Vital Signs Temperature 97.5 F L 11/30/17 06:50 Pulse Rate 78 11/30/17 06:50 Respiratory Rate 16 11/30/17 08:22 Blood Pressure 104/69 11/30/17 06:50 O2 Sat by Pulse Oximetry (%) 98 11/30/17 08:22 Labs: CBC, BMP 11/29/17 19:00 11/29/17 19:00 Discharge Summary Reason For Visit: ALCOHOL WITHDRAWAL SYNDROME Current Active Problems Alcohol withdrawal (Acute) Anemia, macrocytic, nutritional (Acute) Hypokalemia (Acute) Paroxysmal atrial fibrillation with rapid ventricular response (Acute) Condition: Guarded - Instructions - Home Medications Comprehensive Discharge Medication List: Ambulatory Orders Metoprolol Tartrate [Lopressor -] 25 mg PO BID tablet 11/29/17 Nicotine Patch [Nicoderm Patch -] 21 mg TD DAILY patch 11/29/17 Potassium Chloride [K-Dur -] 40 meq PO DAILY tablet.er 11/29/17 Thiamine HCl [Vitamin B1 -] 100 mg PO DAILY tablet 11/29/17
--- NOTE | 2017-11-30 19:10 | PN ---
Progress Note, Physician - Current Medication List Current Medications: Active Medications Chlordiazepoxide HCl (Librium -) 10 mg PO [id number] [facility] Stop: 11/30/17 23:01 Last Admin: 11/30/17 18:13 Dose: 10 mg Metoprolol Succinate (Toprol Xl -) 25 mg PO DAILY [facility] Last Admin: 11/30/17 10:12 Dose: 25 mg Nicotine (Nicoderm Patch -) 21 mg TD DAILY [facility] Last Admin: 11/30/17 10:12 Dose: 21 mg Potassium Chloride (K-Dur -) 40 meq PO DAILY [facility] Last Admin: 11/30/17 10:12 Dose: 40 meq Thiamine HCl (Vitamin B1 -) 100 mg PO DAILY [facility] Last Admin: 11/30/17 10:12 Dose: 100 mg - Objective Vital Signs: Vital Signs Temperature 97.5 F L 11/30/17 15:00 Pulse Rate 92 H 11/30/17 15:00 Respiratory Rate 16 11/30/17 15:00 Blood Pressure 117/78 11/30/17 15:00 O2 Sat by Pulse Oximetry (%) 98 11/30/17 08:22 Constitutional: Yes: No Distress HENT: Yes: Atraumatic Neck: Yes: Supple Cardiovascular: Yes: Regular Rate and Rhythm Respiratory: Yes: CTA Bilaterally Gastrointestinal: Yes: Normal Bowel Sounds Extremities: Yes: WNL Edema: No Peripheral Pulses WNL: Yes Neurological: Yes: Alert, Oriented Labs: CBC, BMP 11/29/17 19:00 11/29/17 19:00 Problem List - Problems (1) Alcohol withdrawal Assessment/Plan: librium protocol will be done tomorrow rehab placement Code(s): F10.239 - ALCOHOL DEPENDENCE WITH WITHDRAWAL, UNSPECIFIED Qualifiers: Complication of substance-induced condition: uncomplicated Qualified Code(s ): F10.230 - Alcohol dependence with withdrawal, uncomplicated
[2017-12-01] MEDS: THIAMINE HCL 100 MG TABLET (FP) PO SCH (10:32)
[2017-12-01] MEDS: metoPROLOL SUCCINATE 25 MG TAB.SR.24H (FP) PO SCH (10:32)
[2017-12-01] MEDS: POTASSIUM CHLORIDE TABS 20 MEQ TABLET.ER (FP) PO SCH (10:32)
[2017-12-01] MEDS: NICOTINE 21 MG/24 HOURS TOPICAL PATCH TD SCH (10:33)
--- NOTE | 2017-12-01 12:26 | PN ---
Progress Note, Physician History of Present Illness: doing well - Current Medication List Current Medications: Active Medications Metoprolol Succinate (Toprol Xl -) 25 mg PO DAILY [facility] Last Admin: 12/01/17 10:32 Dose: 25 mg Nicotine (Nicoderm Patch -) 21 mg TD DAILY [facility] Last Admin: 12/01/17 10:33 Dose: 21 mg Potassium Chloride (K-Dur -) 40 meq PO DAILY [facility] Last Admin: 12/01/17 10:32 Dose: 40 meq Thiamine HCl (Vitamin B1 -) 100 mg PO DAILY [facility] Last Admin: 12/01/17 10:32 Dose: 100 mg - Objective Vital Signs: Vital Signs Temperature 98.3 F 12/01/17 02:00 Pulse Rate 78 12/01/17 02:00 Respiratory Rate 16 12/01/17 10:00 Blood Pressure 122/80 12/01/17 02:00 O2 Sat by Pulse Oximetry (%) 97 12/01/17 10:00 Constitutional: Yes: No Distress HENT: Yes: Atraumatic Neck: Yes: Supple Cardiovascular: Yes: Regular Rate and Rhythm Respiratory: Yes: CTA Bilaterally Gastrointestinal: Yes: Normal Bowel Sounds Extremities: Yes: WNL Neurological: Yes: Alert, Oriented Labs: CBC, BMP 11/29/17 19:00 11/29/17 19:00 Problem List - Problems (1) Alcohol withdrawal Assessment/Plan: librium protocol will be done today rehab placement Code(s): F10.239 - ALCOHOL DEPENDENCE WITH WITHDRAWAL, UNSPECIFIED Qualifiers: Complication of substance-induced condition: uncomplicated Qualified Code(s ): F10.230 - Alcohol dependence with withdrawal, uncomplicated
--- NOTE | 2017-12-01 13:08 | PN ---
Progress Note, Physician History of Present Illness: Palpitations, SOB, and lightheadedness have resolved, no further PAF. Improved tremulousness, librium tapered off. - Current Medication List Current Medications: Active Medications Metoprolol Succinate (Toprol Xl -) 25 mg PO DAILY [facility] Last Admin: 12/01/17 10:32 Dose: 25 mg Nicotine (Nicoderm Patch -) 21 mg TD DAILY [facility] Last Admin: 12/01/17 10:33 Dose: 21 mg Potassium Chloride (K-Dur -) 40 meq PO DAILY [facility] Last Admin: 12/01/17 10:32 Dose: 40 meq Thiamine HCl (Vitamin B1 -) 100 mg PO DAILY [facility] Last Admin: 12/01/17 10:32 Dose: 100 mg - Objective Vital Signs: Vital Signs Temperature 98.3 F 12/01/17 02:00 Pulse Rate 78 12/01/17 02:00 Respiratory Rate 16 12/01/17 10:00 Blood Pressure 122/80 12/01/17 02:00 O2 Sat by Pulse Oximetry (%) 97 12/01/17 10:00 Constitutional: Yes: No Distress, Calm, Thin Neck: Yes: Supple Cardiovascular: Yes: Regular Rate and Rhythm Respiratory: Yes: Regular, CTA Bilaterally Gastrointestinal: Yes: Normal Bowel Sounds, Soft Edema: No Labs: CBC, BMP 11/29/17 19:00 11/29/17 19:00 - ....Imaging EKG: Report Reviewed (Tele: PAC) Problem List - Problems (1) Paroxysmal atrial fibrillation with rapid ventricular response Code(s): I48.0 - PAROXYSMAL ATRIAL FIBRILLATION (2) Hypokalemia Code(s): E87.6 - HYPOKALEMIA (3) Anemia, macrocytic, nutritional Code(s): D52.0 - DIETARY FOLATE DEFICIENCY ANEMIA (4) Alcohol withdrawal Code(s): F10.239 - ALCOHOL DEPENDENCE WITH WITHDRAWAL, UNSPECIFIED Qualifiers: Complication of substance-induced condition: uncomplicated Qualified Code(s ): F10.230 - Alcohol dependence with withdrawal, uncomplicated Assessment/Plan 11/28/2017 Echo: Normal LV and RV size and fxn, abnl LV compliance w/o sig valve abnl, normal LA size 1. Palpitations, dyspnea, near syncope referable to rapid paroxysmal afib->SR [id number] 2. ETOH dependence with uncomplicated withdrawal 3. Macrocytic anemia 4. Hypokalemia resolved P: 1. Continue Toprol XL 25 qd, not ideal anticoagulation candidate due to low risk score and ETOH dependence 2. Librium taper completed, replete K, vitamin B12 and thiamine repletion 3. D/c planning
[2017-12-02] MEDS: POTASSIUM CHLORIDE TABS 20 MEQ TABLET.ER (FP) PO SCH (10:16)
[2017-12-02] MEDS: metoPROLOL SUCCINATE 25 MG TAB.SR.24H (FP) PO SCH (10:16)
[2017-12-02] MEDS: NICOTINE 21 MG/24 HOURS TOPICAL PATCH TD SCH (10:17)
[2017-12-02] MEDS: THIAMINE HCL 100 MG TABLET (FP) PO SCH (10:17)
--- NOTE | 2017-12-02 14:43 | PN ---
Progress Note, Physician History of Present Illness: Palpitations, SOB, and lightheadedness have resolved, no further PAF. Resolved tremulousness, librium tapered off, feels debilitated. - Current Medication List Current Medications: Active Medications Metoprolol Succinate (Toprol Xl -) 25 mg PO DAILY [facility] Last Admin: 12/02/17 10:16 Dose: 25 mg Nicotine (Nicoderm Patch -) 21 mg TD DAILY [facility] Last Admin: 12/02/17 10:17 Dose: 21 mg Potassium Chloride (K-Dur -) 40 meq PO DAILY [facility] Last Admin: 12/02/17 10:16 Dose: 40 meq Thiamine HCl (Vitamin B1 -) 100 mg PO DAILY [facility] Last Admin: 12/02/17 10:17 Dose: 100 mg - Objective Vital Signs: Vital Signs Temperature 98.2 F 12/02/17 13:57 Pulse Rate 88 12/02/17 13:57 Respiratory Rate 18 12/02/17 13:57 Blood Pressure 105/69 12/02/17 13:57 O2 Sat by Pulse Oximetry (%) 95 12/02/17 10:15 Constitutional: Yes: No Distress, Calm, Thin Neck: Yes: Supple Cardiovascular: Yes: Regular Rate and Rhythm Respiratory: Yes: Regular, CTA Bilaterally Gastrointestinal: Yes: Normal Bowel Sounds, Soft Edema: No Labs: CBC, BMP 11/29/17 19:00 11/29/17 19:00 - ....Imaging EKG: Report Reviewed (Tele: NSR PAC) Problem List - Problems (1) Paroxysmal atrial fibrillation with rapid ventricular response Code(s): I48.0 - PAROXYSMAL ATRIAL FIBRILLATION (2) Hypokalemia Code(s): E87.6 - HYPOKALEMIA (3) Anemia, macrocytic, nutritional Code(s): D52.0 - DIETARY FOLATE DEFICIENCY ANEMIA (4) Alcohol withdrawal Code(s): F10.239 - ALCOHOL DEPENDENCE WITH WITHDRAWAL, UNSPECIFIED Qualifiers: Complication of substance-induced condition: uncomplicated Qualified Code(s ): F10.230 - Alcohol dependence with withdrawal, uncomplicated Assessment/Plan 11/28/2017 Echo: Normal LV and RV size and fxn, abnl LV compliance w/o sig valve abnl, normal LA size 1. Palpitations, dyspnea, near syncope referable to rapid paroxysmal afib->SR [id number] 2. ETOH dependence with uncomplicated withdrawal 3. Macrocytic anemia 4. Hypokalemia resolved P: 1. Continue Toprol XL 25 qd, not ideal anticoagulation candidate due to low risk score and ETOH dependence 2. Librium taper completed, replete K, vitamin B12 and thiamine repletion 3. D/c planning to SNF
--- NOTE | 2017-12-02 20:15 | PN ---
Progress Note, Physician History of Present Illness: doing well - Current Medication List Current Medications: Active Medications Metoprolol Succinate (Toprol Xl -) 25 mg PO DAILY [facility] Last Admin: 12/02/17 10:16 Dose: 25 mg Nicotine (Nicoderm Patch -) 21 mg TD DAILY [facility] Last Admin: 12/02/17 10:17 Dose: 21 mg Potassium Chloride (K-Dur -) 40 meq PO DAILY [facility] Last Admin: 12/02/17 10:16 Dose: 40 meq Thiamine HCl (Vitamin B1 -) 100 mg PO DAILY [facility] Last Admin: 12/02/17 10:17 Dose: 100 mg - Objective Vital Signs: Vital Signs Temperature 98.2 F 12/02/17 13:57 Pulse Rate 88 12/02/17 13:57 Respiratory Rate 18 12/02/17 13:57 Blood Pressure 105/69 12/02/17 13:57 O2 Sat by Pulse Oximetry (%) 95 12/02/17 10:15 Constitutional: Yes: No Distress HENT: Yes: Atraumatic Neck: Yes: Supple Cardiovascular: Yes: Regular Rate and Rhythm Respiratory: Yes: CTA Bilaterally Gastrointestinal: Yes: Normal Bowel Sounds Extremities: Yes: WNL Edema: No Peripheral Pulses WNL: Yes Neurological: Yes: Alert, Oriented Labs: CBC, BMP 11/29/17 19:00 11/29/17 19:00 Problem List - Problems (1) Alcohol withdrawal Assessment/Plan: completed librium continue other meds dc to [facility] Code(s): F10.239 - ALCOHOL DEPENDENCE WITH WITHDRAWAL, UNSPECIFIED Qualifiers: Complication of substance-induced condition: uncomplicated Qualified Code(s ): F10.230 - Alcohol dependence with withdrawal, uncomplicated
--- NOTE | 2017-12-03 06:34 | PN ---
Progress Note (short form) - Note Progress Note: Chief Complaint: Events noted, notes reviewed, atrial fibrillation resolved remains in sinus rhythm, denies any chest pain or dyspnea History of Present Illness: Seen and examined on telemetry. Events noted, notes reviewed, atrial fibrillation resolved remains in sinus rhythm, denies any chest pain or dyspnea Echocardiography dated 11/28/2017 normal LV and RV size and function, abnormal LV compliance with no significant valve abnormality Medications: Current Medications Metoprolol Succinate (Toprol Xl -) 25 mg PO DAILY [facility] Last Admin: 12/02/17 10:16 Dose: 25 mg Nicotine (Nicoderm Patch -) 21 mg TD DAILY [facility] Last Admin: 12/02/17 10:17 Dose: 21 mg Potassium Chloride (K-Dur -) 40 meq PO DAILY [facility] Last Admin: 12/02/17 10:16 Dose: 40 meq Thiamine HCl (Vitamin B1 -) 100 mg PO DAILY [facility] Last Admin: 12/02/17 10:17 Dose: 100 mg Review of Systems - Review of Systems Constitutional: denies: Chills or Fever Cardiovascular: as noted above Gastrointestinal: denies: Nausea, Vomiting, Diarrhea, Constipation or Abdominal Pain Genitourinary: No symptoms reported Neurological: No symptoms reported Vital Signs: Last Vital Signs Temp Pulse Resp BP Pulse Ox 97.7 F 73 16 106/67 100 12/03/17 06:07 12/03/17 06:07 12/03/17 06:07 12/03/17 06:07 12/02/17 21:00 Intake & Output 11/30/17 12/01/17 12/02/17 12/03/17 23:59 23:59 23:59 23:59 Intake Total 1050 680 790 120 Output Total 350 150 500 Balance 700 530 790 -380 Neck: Supple Negative JVD No Bruit Respiratory: Diminished Breath Sounds at the Bases Cardiovascular: S1 S2 Regular Rate and Rhythm Grade 2/6 BRAEDEN Gastrointestinal: Soft Benign Normal Bowel Sounds Ext: Negative Edema Labs: CBC, BMP 11/29/17 19:00 11/29/17 19:00 Assessment/Plan ASSESSMENT: 1. Palpitations, dyspnea, near syncope referable to rapid paroxysmal atrial fibrillation with [id number] score of 0 currently in sinus rhythm 2. ETOH dependence with uncomplicated withdrawal 3. Macrocytic anemia 4. Hypokalemia, resolved PLAN: 1. Continue Toprol XL 2. Continue ASA, considering patient's [id number] score of 0 no indications for A/C 3. Can be D/C from the cardiovascular point of view 4. Patient was counselled alcohol abstinence Artie Santos M.D.
[2017-12-03 09:16] VITALS: BP 116/72; PULSE 84; TEMP 98.1
[2017-12-03] MEDS: NICOTINE 21 MG/24 HOURS TOPICAL PATCH TD SCH (09:38)
[2017-12-03] MEDS: metoPROLOL SUCCINATE 25 MG TAB.SR.24H (FP) PO SCH (09:38)
[2017-12-03] MEDS: THIAMINE HCL 100 MG TABLET (FP) PO SCH (09:38)
[2017-12-03] MEDS: POTASSIUM CHLORIDE TABS 20 MEQ TABLET.ER (FP) PO SCH (09:38)
--- NOTE | 2017-12-03 18:02 | DS ---
Physical Examination Vital Signs: Vital Signs Temperature 98.1 F 12/03/17 09:15 Pulse Rate 84 12/03/17 09:15 Respiratory Rate 18 12/03/17 09:15 Blood Pressure 116/72 12/03/17 09:15 O2 Sat by Pulse Oximetry (%) 100 12/03/17 09:00 Constitutional: Yes: No Distress HENT: Yes: Atraumatic Neck: Yes: Supple Cardiovascular: Yes: Regular Rate and Rhythm Respiratory: Yes: CTA Bilaterally Gastrointestinal: Yes: Normal Bowel Sounds Extremities: Yes: WNL Neurological: Yes: Alert, Oriented Labs: CBC, BMP 11/29/17 19:00 11/29/17 19:00 Discharge Summary Reason For Visit: ALCOHOL WITHDRAWAL SYNDROME Condition: Stable - Instructions [facility] - Home Medications Comprehensive Discharge Medication List: Ambulatory Orders Metoprolol Tartrate [Lopressor -] 25 mg PO BID tablet 11/29/17 Nicotine Patch [Nicoderm Patch -] 21 mg TD DAILY patch 11/29/17 Potassium Chloride [K-Dur -] 40 meq PO DAILY tablet.er 11/29/17 Thiamine HCl [Vitamin B1 -] 100 mg PO DAILY tablet 11/29/[address] [facility]
== END 2017-12-03 14:33 | DRG 201 ==
LOC: JER 10:46 → JERBED 13:27 → J4S 11-27 03:09
PROVIDERS: ADMIT Internal Medicine; ATTEND Internal Medicine
PROC: HZ2ZZZZ Detoxification Services for Substance Abuse Treatment (ICD-10-PCS; principal; 2017-11-27)
DX: I48.0 Paroxysmal atrial fibrillation (principal); E87.6 Hypokalemia; D52.0 Dietary folate deficiency anemia; F10.230 Alcohol dependence with withdrawal, uncomplicated; R64 Cachexia; Z68.23 Body mass index [BMI] 23.0-23.9, adult; R25.1 Tremor, unspecified; R25.3 Fasciculation; I10 Essential (primary) hypertension; R00.2 Palpitations
CPT/HCPCS: 36415; 70450-TC; 71045-TC-FY; 80053; 80307; 81003; 82150; 82607; 83690; 84443; 85025; 93005; 93010; 93306-TC; 97116-GP; 97161-GP; 99285-25; J7030